=== PATIENT | male | born 1980 | race Caucasian/White ===

== ENCOUNTER 2019-04-25 12:21 | Emergency (ER) | payer OTHER, SELFPAY ==
[2019-04-25] MEDS ORDERED: Ketorolac 60 MG/2 ML SDV IM ONE (13:14)
[2019-04-25] MEDS ORDERED: Orphenadrine 100 MG Tab.ER PO ONE (13:14)
--- NOTE | 2019-04-25 13:34 | EDM.PDOC ---
ED HPI GENERAL MEDICAL PROBLEM - General Chief Complaint: Back Pain or Injury Stated Complaint: BACK INJURY Time Seen by Provider: 04/25/19 12:45 Source of Information: Reports: Patient, RN Notes Reviewed History Limitations: Reports: No Limitations - History of Present Illness INITIAL COMMENTS - FREE TEXT/NARRATIVE: Patient is a 39-year-old male who presents to the ED for the evaluation of his lower back pain. Patient states that the pain started yesterday, he was eating supper with his family at the table, and he bent over, and this caused increased pain into his mid low back. He states that the pain has seemed to increase today. He is noting a little bit of weakness to his right leg, which caused him to collapse to his knees this morning. He is not complaining of any knee or hip pain regarding the fall. He did not hit his head or have any loss of consciousness. Patient states that the pain does radiate down his right leg , but stops above his kneecap. He is not complaining of any bowel or bladder issues or saddle anesthesia. He is not having any numbness or tingling into his extremities distal to the injury. He did take 2 tablets of extra strength Tylenol today at around 10:30 AM. notes that he gets flares of this roughly 2 times a year, but this 1 seems to be the worst. The patient states that laying flat feels the best, and he has been trying hot and cold packs as well and this seems to help. 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 Lower Back Pain Score (Numeric/FACES): 2 - Related Data Allergies Allergy/AdvReac Type Severity Reaction Status Date / Time No Known Allergies Allergy Verified 04/25/19 12:42 Home Meds: Home Meds Orphenadrine [Norflex] 100 mg PO BID PRN #20 tab 04/25/19 [Rx] predniSONE 20 mg PO ASDIRECTED #15 tab 04/25/19 [Rx] Past Medical History Musculoskeletal History: Reports: Back Pain, Chronic - Past Surgical History HEENT Surgical History: Reports: Eye Surgery Social & Family History - Tobacco Use Smoking Status *Q: Never Smoker - Caffeine Use Caffeine Use: Reports: Coffee, Soda - Recreational Drug Use Recreational Drug Use: No ED ROS GENERAL - Review of Systems Review Of Systems: See Below Constitutional: Denies: Fever, Chills Respiratory: Denies: Shortness of Breath, Cough Cardiovascular: Denies: Chest Pain GI/Abdominal: Denies: Abdominal Pain, Constipation, Diarrhea, Nausea, Vomiting : Denies: Dysuria, Flank Pain, Frequency, Incontinence, Urgency Musculoskeletal: Reports: Back Pain (mid low back pain w radiation to R leg), Leg Pain (R leg pain). Denies: Joint Pain Neurological: Denies: Numbness, Tingling ED EXAM,LOWER BACK PAIN/INJURY - Physical Exam Exam: See Below Exam Limited By: No Limitations General Appearance: Alert, WD/WN, No Apparent Distress Eye Exam: Bilateral Eye: EOMI, Normal Inspection, PERRL Ears: Normal External Exam Nose: Normal Inspection Throat/Mouth: Normal Inspection Head: Atraumatic, Normocephalic Neck: Normal Inspection, Supple, Non-Tender, Full Range of Motion Respiratory/Chest: No Respiratory Distress, Lungs Clear, Normal Breath Sounds, No Accessory Muscle Use, Chest Non-Tender Cardiovascular: Normal Peripheral Pulses, Regular Rate, Rhythm, No Edema, No Murmur GI/Abdominal: Normal Bowel Sounds, Soft, Non-Tender, No Distention, No Mass Extremities: Normal Inspection, Normal Capillary Refill, Limited Range of Motion (of bilateral lower extremities d/t pain) Neurological: Alert, Normal Mood/Affect, Normal Dorsiflexion, Normal Plantar Flexion, Normal Reflexes, No Motor/Sensory Deficits, Oriented x 3, Straight Leg Raise (L), Straight Leg Raise (R). No: Saddle Anesthesia Psychiatric: Normal Affect, Normal Mood Skin Exam: Warm, Dry, Intact, Normal Color, No Rash Course - Vital Signs Last Recorded V/S: Last Vital Signs Temp 98.7 F 04/25/19 12:39 Pulse 76 04/25/19 12:39 Resp 16 04/25/19 12:39 BP 150/93 H 04/25/19 12:39 Pulse Ox 98 04/25/19 12:39 - Orders/Labs/Meds Meds: Medications Discontinued Medications Generic Name Dose Route Start Last Admin Trade Name Freq PRN Reason Stop Dose Admin Ketorolac Tromethamine 60 mg 04/25/19 13:14 04/25/19 13:24 Toradol IM 04/25/19 13:15 60 mg ONETIME ONE Administration Orphenadrine Citrate 100 mg 04/25/19 13:14 04/25/19 13:24 Norflex PO 04/25/19 13:15 100 mg ONETIME ONE Administration - Re-Assessments/Exams Free Text/Narrative Re-Assessment/Exam: 04/25/19 13:35 Patient presents to the ED for evaluation of his lower back pain. I do believe this to be bilateral sciatica in nature, he was given an injection of Toradol for pain management with some Norflex at today's visit, and will be given a prescription for prednisone on outpatient basis with some tablets of Norflex. Patient will set up care with a primary care provider, for further evaluation and management. Departure - Departure Time of Disposition: 13:36 Disposition: Home, Self-Care 01 Condition: Fair Clinical Impression: Low back pain Qualifiers: Chronicity: acute Back pain laterality: midline Sciatica presence: with sciatica Sciatica laterality: bilateral sciatica Qualified Code(s): M54.42 - Lumbago with sciatica, left side; M54.41 - Lumbago with sciatica, right side - Discharge Information *PRESCRIPTION DRUG MONITORING PROGRAM REVIEWED*: No *COPY OF PRESCRIPTION DRUG MONITORING REPORT IN PATIENT KIRAN: No Prescriptions: Orphenadrine [Norflex] 100 mg PO BID PRN #20 tab PRN Reason: Spasms predniSONE 20 mg PO ASDIRECTED #15 tab Instructions: Back Exercises, [id number] Referrals: PCP,None [Primary Care Provider] - Forms: ED Department Discharge Additional Instructions: You have been evaluated in the ED for your lower back pain. Your pain is most likely due to an aggravation of your sciatic nerve. Treatment of this is steroids to help calm the inflammation. You will be started on a course of prednisone please take as directed. Please use ice/heat as tolerated to the affected area. You were also given a prescription for some muscle relaxers, please take 1 every 12 hours as needed for muscle spasms. Recommend you set up care with a primary care physician, and go over the possibility of getting an MRI of your lumbar spine for further evaluation and management. Please return to ED if your symptoms should change or worsen. Sepsis Event Note - Evaluation Sepsis Screening Result: No Definite Risk - Focused Exam Vital Signs: Vital Signs Temp Pulse Resp BP Pulse Ox 04/25/19 12:39 98.7 F 76 16 150/93 H 98 Date Exam was Performed: 04/25/19 Time Exam was Performed: 13:36
== END 2019-04-25 14:08 | disposition home or self-care (01) ==
LOC: JD.ED 12:21
DX: M54.42 Lumbago with sciatica, left side (principal); M54.41 Lumbago with sciatica, right side; X50.1XXA Overexertion from prolonged static or awkward postures, initial encounter
CPT/HCPCS: 96372; 99283; A9270; J1885